=== PATIENT | female | born 2000 | race Two or more races ===

== ENCOUNTER 2021-10-09 21:46 | Emergency (ER) | payer OTHER ==
[~2021-10-09] VITALS: Ht 165.1 cm; Wt 93.0 kg
[2021-10-09] MEDS ORDERED: PRENA1 CHEW TA1.4 MG (22:41)
[2021-10-10] MEDS ORDERED: ZOFRAN8 MG PO (05:58)
[2021-10-10] MEDS ORDERED: PEPCID40 MG PO (06:00)
== END 2021-10-10 06:12 ==
LOC: ER 21:46
DX: O20.9 Hemorrhage in early pregnancy, unspecified (principal); Z3A.01 Less than 8 weeks gestation of pregnancy